=== PATIENT | male | born 1950 | race Caucasian/White ===

== ENCOUNTER 2019-05-16 05:51 | Emergency (ER) | payer MEDICARE ==
[2019-05-16] MEDS ORDERED: Nitrostat 0.4 MG (ED) SL ONE (06:14)
[2019-05-16] MEDS ORDERED: BABY ASPIRIN 81 MG CHEW PO ONE (06:14)
[2019-05-16] MEDS ORDERED: Sodium Chloride 0.9% 1000 ML 1,000 ML IV SCH (06:15)
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
[2019-05-16 06:37] LABS: Absolute Neutrophil Ct (ANC) 5.93 (1.4-6.9); BASOPHIL % 0.4 % (0.0-0.4); Basophil (Absolute #) 0.04 (0-0.4); Eosinophil (Absolute #) 0.42 (0-0.5); Hematocrit 46.6 % (42-50); Hemoglobin 15.5 gm/dl (12.5-18.0); Mean Cell Volume 95.9 fl (78-100); Mean Corpuscular Hemoglobin 31.9 pg (26-32); Mean Corpuscular Hgb Concent. 33.3 g/dl (32-36); Mean Platelet Volume 10.3 fl (6-9.5); Monocyte (Absolute #) 1.29 (0.0-1.3); Monocytes % 12.4 % (0.0-12.0); Neutrophil % 57.2 % (36.0-66.0); Platelet Count 228 K/mm3 (150-450); Red Blood Count 4.86 M/mm3 (4.1-5.6); Red Cell Distribution Width 13.6 % (11.5-14.0); White Blood Count 10.4 K/mm3 (4.0-10.5)
[2019-05-16] MEDS ORDERED: Sodium Chloride 0.9% 1000 ML 1,000 ML ONE (06:37)
[2019-05-16 06:55] LABS: ALBUMIN 4.4 g/dL (3.5-5.0); ALKALINE PHOSPHATASE 83 U/L (38-126); BLOOD UREA NITROGEN 15 mg/dL (9-20); CHLORIDE 102 mmol/L (98-107); Calcium 9.8 mg/dL (8.4-10.2); Carbon Dioxide 29 mmol/L (22-30); Creatinine 1 0.89 mg/dL (0.66-1.25); Glucose 117 mg/dL (74-106); NT PRO BNP 29.8 pg/mL (0-900); Potassium 4.6 mmol/L (3.5-5.1); SGOT/AST 22 U/L (17-59); SGPT/ALT 28 U/L (0-50); SODIUM 140 mmol/L (137-145); Total Protein 7.7 g/dL (6.3-8.2)
[2019-05-16 09:49] VITALS: BP 144/71; PULSE 76; O2SAT 98
--- NOTE | 2019-05-16 10:30 | XRAY ---
Indication: Chest pain and pressure. Comparison: January 30, 2011. AP/lateral chest demonstrates new right midlung subsegmental atelectasis/scarring. No focal infiltrate, consolidation, or large effusion. Heart and mediastinal structures within normal limits. Bony thorax intact again with minimal double curvature scoliosis and old left rib fractures. Stable right axillary surgical clips. Impression: Nonacute chest with chronic features.
--- NOTE | 2019-05-16 10:34 | XRAY ---
Indication: Cervical radiculopathy. Left upper extremity numbness/tingling 2 weeks. Multiple contiguous axial images obtained through the cervical spine. Sagittal and coronal reformatted images obtained. Comparison: None Axial images negative for acute fracture, suspicious bony lesions, or spinal canal stenosis. There are mild/moderate C4-C7 degenerative endplate spurring. Also mild/moderate multilevel bilateral degenerative facet hypertrophy. Sagittal and coronal reformatted images demonstrates cervical lordotic straightening, positional versus paraspinal spasm. Mild C5-C7 disc space narrowing. No acute compression fracture, subluxation, or jumped facet. Normal appearing craniocervical junction. Visualized noncontrasted soft tissues demonstrates mild carotid calcifications bilaterally. 1.5 cm left thyroid nodule/cyst. Base of the brain and lung apices are unremarkable. Impression: 1. Cervical lordotic straightening, positional versus paraspinal spasm. 2. Multilevel degenerative changes. 3. Left thyroid nodule/cyst. Thyroid sonogram may yield further information if clinically warranted. Comment: Preliminary interpretation was made by [facility]. No critical discrepancy. CTDI 45.74
== END 2019-05-16 10:00 | disposition home or self-care (01) ==
LOC: ED 05:51
DX: R20.0 Anesthesia of skin (principal); R20.2 Paresthesia of skin; R07.89 Other chest pain; R42 Dizziness and giddiness; Z79.899 Other long term (current) drug therapy; Z79.891 Long term (current) use of opiate analgesic
CPT/HCPCS: 36000; 36415; 71046; 72125; 80053; 83880; 84484; 85025; 85379; 93005; 93041; 94760; 96360; 96361; 99285; A9270-GY